=== PATIENT | female | born 1955 | race Caucasian/White ===

== ENCOUNTER 2017-05-30 10:41 | Emergency (ER) | payer OTHER ==
--- NOTE | ~2017-05-30 | ER ---
PATIENT'S NAME: [facility] AGE: 61 Y [address] ROOM: [place] [id number] LOCATION: [facility] ADMIT DATE: 05/30/2017 ER/Outpatient Report DISCHARGE DATE: 05/30/2017 FAMILY PHYSICIAN: Eulogio Brady MD ATTENDING PHYSICIAN: Shahzad Evans Time of Arrival: 1050 hours. Time of Evaluation: 1100 hours. CHIEF COMPLAINT: Panic attack. HISTORY OF PRESENT ILLNESS: The patient states she has a history of having panic attacks and anxiety. She is currently doing EMDR treatments with Dr. Saldana, who is a psychologist at [facility] for lupus. She states she had therapy on Wednesday and has been having problems with anxiety since. States that the symptoms have just really escalated today. She reports that she is feeling tingling of her skin. She has chest tightness and some shortness of breath. She denies any desire to harm herself or anyone else. ALLERGIES: PENICILLIN. CURRENT MEDICATIONS: On her chart and reviewed by me. PAST MEDICAL HISTORY: Anxiety with panic attack, depression, lupus. She presents to the ER accompanied by her . SOCIAL HISTORY: Denies use of tobacco or drugs. Drinks alcohol on a rare occasion. REVIEW OF SYSTEMS: Negative other than those mentioned in the HPI. PHYSICAL EXAMINATION: VITAL SIGNS: She weighs 88.9 kg, blood pressure is 142/96, pulse of 89, respirations 20, temperature of 98.1 tympanic, O2 saturation is 93% on room air. GENERAL: She is awake, alert, and oriented x4. SKIN: [place], warm, and dry. RESPIRATIONS: Even and nonlabored. Lung sounds are clear throughout. HEART: Regular rate and rhythm. PATIENT'S NAME: [facility] AGE: 61 Y [address] ROOM: [place], [place] [address] LOCATION: [facility] ADMIT DATE: 05/30/2017 ER/Outpatient Report DISCHARGE DATE: 05/30/2017 FAMILY PHYSICIAN: Eulogio Brady MD ATTENDING PHYSICIAN: Shahzad Evans EMERGENCY DEPARTMENT COURSE: EKG was completed. It shows a sinus rhythm. CBC is within normal limits. Chem panel is within normal limits. Cardiac enzymes are negative. Saline lock was initiated. The patient was given Ativan 0.5 mg IV. She was monitored. Vital signs remained stable. Did not have increase in discomfort and was feeling better after the Ativan. IMPRESSION: Chest pain due to anxiety attack and panic attack. PLAN: Home, rest, fluids. Did give her a prescription for Ativan. She is to follow up with her primary provider tomorrow. She and her verbalized understanding. AURE MENA APRN FOR MD THEODORA ANDUJAR/erica /[id number] d: 05/30/172045 t: 06/08/17629, OUTPATIENT REPORT
[2017-05-30 11:40] LABS: BASOPHIL % 0.4 %; EOSINOPHIL % 0.2 %; HEMATOCRIT 43.7 % (33.0-46.0); IMMATURE GRANULOCYTE % 0.3 %; LYMPHOCYTE # 1.1 K/uL (0.8-4.0); LYMPHOCYTE % 10.6 %; MCH 31.1 pg (27.0-34.0); MCHC 34.3 gm/dL (32.0-36.5); MCV 90.5 fl (83.0-98.0); MONOCYTE # 0.5 K/uL (0.0-1.0); MONOCYTE % 4.9 %; MPV 8.9 fl (9.4-12.4); NEUTROPHIL # (ANC) 8.6 K/uL (1.8-7.8); NEUTROPHIL % 83.6 %; NRBC % 0 /100WBC (0-0.00); PLATELET COUNT 302 K/uL (150-450); RBC 4.83 M/uL (3.50-5.50); RDW-CV 12.8 % (11.9-14.6); WBC 10.2 K/uL (4.0-11.0)
[2017-05-30 11:58] LABS: ALK PHOS 70 IU/L (33-138); ALT 33 IU/L (12-78); ANION GAP 11.1 (10.0-19.0); AST 23 IU/L (10-40); BLOOD UREA NITROGEN 15 mg/dL (6-24); CALCIUM 8.8 mg/dL (8.5-10.5); CHLORIDE 105 mMol/L (96-110); CO2 26 mMol/L (22-32); CPK 100 IU/L (21-215); POTASSIUM 4.1 mMol/L (3.7-5.1); SODIUM 138 mMol/L (135-145); TOTAL BILIRUBIN 0.3 mg/dL (0.0-1.5); TOTAL PROTEIN 7.5 g/dL (6.0-8.4)
== END 2017-05-30 11:35 | disposition disaster alternative care site (69) ==
LOC: GMED 10:41
PROVIDERS: Nurse Practitioner Family
DX: R07.89 Other chest pain (principal); F41.0 Panic disorder [episodic paroxysmal anxiety]; Z88.0 Allergy status to penicillin; Z79.899 Other long term (current) drug therapy
CPT/HCPCS: J2060